=== PATIENT | male | born 1980 | race Caucasian/White ===

== ENCOUNTER 2018-02-09 10:40 | Emergency (ER) | payer BC, OTHER ==
[~2018-02-09] VITALS: Ht 167.6 cm; Wt 76.2 kg
[~2018-02-09 10:40] MED LIST: AMLO5TAB4 PO
[2018-02-09] MEDS ORDERED: HYDR-753 PO (11:21)
[2018-02-09] MEDS ORDERED: ONDA8TAB9 PO (11:21)
--- NOTE | 2018-02-09 11:21 | ED Upper Extremity ---
General Stated Complaint: POSS SPIDER BITE Source: patient Exam Limitations: no limitations History of Present Illness Date Seen by Provider: Feb 09, 2018 Time Seen by Provider: 11:17 Initial Comments to ER with a possible spider bite to the medial aspect of the left elbow for the past 3-4 days. He's been seen at [facility] couple of times, initially started on Keflex, then he was given doxycycline/mupirocin/dapsone a few days later with an injection of steroids. Denies improvement. Reports nausea today Onset: just prior to arrival Severity: moderate Pain/Injury Location: left arm Modifying Factors: Worse With Movement Allergies and Home Medications Allergies Coded Allergies: No Known Drug Allergies (Unverified , 09/11/15) Home Medications Amlodipine Besylate 5 Mg Tablet, 5 MG PO DAILY Prescribed by: GUILLERMO GUZMAN on 09/11/152034 Patient Home Medication List Home Medication List Reviewed: Yes Constitutional: see HPI; No chills, No fever EENTM: see HPI Respiratory: no symptoms reported Cardiovascular: no symptoms reported Genitourinary: no symptoms reported Musculoskeletal: no symptoms reported Skin: no symptoms reported Psychiatric/Neurological: No Symptoms Reported Past Uahhffp-Brnthm-Mybhcc Hx Patient Social History Recent Foreign Travel: No Contact w/Someone Who Travel: No Immunizations Up To Date Tetanus Booster (TDap): Less than 5yrs Past Medical History Orthopedic Hypertension Reproductive Disorders: No ADD/ADHD, Anxiety Adverse Reaction/Blood Tranf: No Physical Exam Vital Signs Capillary Refill : General Appearance: WD/WN, no apparent distress HEENT: PERRL/EOMI, normal ENT inspection Neck: non-tender, full range of motion Respiratory: no respiratory distress, no accessory muscle use Gastrointestinal: normal bowel sounds, non tender Shoulder: normal inspection, non-tender Elbow/Forearm: Left, pain (there is a 1 cm erythematouslesion with a central 1- 2 mm necrotic punctum. Surrounding this is a bit of blanching and then around this is significant erythema without induration extending distally down the metformin proximally up to the elbow.) Neurologic/Psychiatric: alert, normal mood/affect, oriented x 3 Skin: normal color, warm/dry Procedures/Interventions Suture Size: 4-0 Departure Communication (Admissions) I did suggest a CBC to evaluate platelet function. He rather have this done at the [facility] where it's cheaper. Impression Primary Impression: Alberto flores spider bite Disposition: 01 HOME, SELF-CARE Condition: Stable Departure-Patient Inst. Decision time for Depature: 11:19 Referrals: LUIS A BAIG MD (PCP) Primary Care Physician NO,LOCAL PHYSICIAN (Family) Primary Care Physician Patient Instructions: Spider Bites Add. Discharge Instructions: 1. Cool compresses to this area. Continue the doxycycline/dapsone. Take the nausea medication and the pain medication as directed. This will stick around for about 2 weeks. Scripts Ondansetron (Zofran Odt) 8 Mg Tab.rapdis 8 MG PO Q6H PRN for NAUSEA/VOMITING-1ST LINE, #10 TAB Prov: SHIRA GUERRERO APRN 02/09/18 Hydrocodone/Acetaminophen ([place] 10-325 Tablet) 1 Each Tablet 1 EACH PO Q6H PRN for PAIN-MODERATE TO SEVERE, #14 TAB Prov: SHIRA GUERRERO APRN 02/09/18 SHIRA GUERRERO APRN Feb 09, 2018 11:21
[2018-02-09 11:25] VITALS: BP 177/124
== END 2018-02-09 11:25 | disposition home or self-care (01) ==
LOC: EDUNIT# 10:40 → ER 10:42
DX: S50.362A Insect bite (nonvenomous) of left elbow, initial encounter (principal); I10 Essential (primary) hypertension; F90.9 Attention-deficit hyperactivity disorder, unspecified type; F41.9 Anxiety disorder, unspecified; W57.XXXA Bitten or stung by nonvenomous insect and other nonvenomous arthropods, initial encounter
CPT/HCPCS: 99283

== ENCOUNTER 2018-12-07 09:12 | Inpatient (IN) | payer BC ==
[~2018-12-07] VITALS: Ht 170.2 cm; Wt 76.2 kg
[2018-12-07] VITALS (8 sets, daily range): BP systolic 115–156; BP diastolic 68–90
[~2018-12-07 09:12] MED LIST changes: +HYDR-4196 PO; +ONDA8TAB9 PO
[2018-12-07] MEDS ORDERED: LACTATED RINGERS 1,000 ML IV ONE (09:43)
[2018-12-07 10:02] LABS: BASOPHILS # (AUTO) 0.1 10^3/uL (0.0-0.1); BASOPHILS % (AUTO) 0 % (0-10); EOSINOPHILS # (AUTO) 0.4 10^3/uL (0.0-0.3); EOSINOPHILS % (AUTO) 1 % (0-10); HEMATOCRIT 49 % (40-54); HEMOGLOBIN 17.2 G/DL (13.3-17.7); LYMPHOCYTES # (AUTO) 0.9 X 10^3 (1.0-4.0); LYMPHOCYTES % (AUTO) 3 % (12-44); MEAN CORPUSCULAR HEMOGLOBIN 31 PG (25-34); MEAN CORPUSCULAR HGB CONC 35 G/DL (32-36); MEAN CORPUSCULAR VOLUME 90 FL (80-99); MEAN PLATELET VOLUME 8.9 FL (7.4-10.4); MONOCYTES # (AUTO) 1.8 X 10^3 (0.0-1.0); MONOCYTES % (AUTO) 6 % (0-12); NEUTROPHILS # (AUTO) 28.8 X 10^3 (1.8-7.8); NEUTROPHILS % (AUTO) 90 % (42-75); PLATELET COUNT 433 10^3/uL (130-400); RED CELL DISTRIBUTION WIDTH 13.2 % (10.0-14.5)
[2018-12-07 10:04] LABS: WHITE BLOOD COUNT 31.9 10^3/uL (4.3-11.0)
[2018-12-07] MEDS ORDERED: ACETAMINOPHEN 500 MG TAB (TYLENOL) PO ONE (10:15)
[2018-12-07 10:18] LABS: INR 1.1 (0.8-1.4); PROTHROMBIN TIME PATIENT 14.3 SEC (12.2-14.7)
[2018-12-07 10:23] LABS: ALANINE AMINOTRANSFERASE 33 U/L (0-55); ALBUMIN 4.1 GM/DL (3.2-4.5); ALKALINE PHOSPHATASE 90 U/L (40-136); BILIRUBIN,TOTAL 2.3 MG/DL (0.1-1.0); BUN/CREATININE RATIO 16; CALCIUM 9.6 MG/DL (8.5-10.1); CARBON DIOXIDE 16 MMOL/L (21-32); CHLORIDE 100 MMOL/L (98-107); CREATININE SERUM 0.77 MG/DL (0.60-1.30); GFR ESTIMATED > 60; GLUCOSE 106 MG/DL (70-105); MAGNESIUM 2.2 MG/DL (1.8-2.4); POTASSIUM 4.5 MMOL/L (3.6-5.0); SODIUM 128 MMOL/L (135-145); TOTAL PROTEIN 7.5 GM/DL (6.4-8.2)
[2018-12-07 10:26] LABS: BAND NEUTROPHILS 2 %; BASOPHILS % (MANUAL) 0 %; EOSINOPHILS % (MANUAL) 2 %; HYPERSEGMENTED NEUT SLIGHT; LYMPHOCYTES % (MANUAL) 5 %; MONOCYTES % (MANUAL) 4 %; NEUTROPHILS % (MANUAL) 87 %
[2018-12-07 10:27] LABS: POIKILOCYTOSIS SLIGHT; SMUDGE CELLS SLIGHT; STOMATOCYTES SLIGHT; TOXIC GRANULATION/VACUOLAZATIO 1+
[2018-12-07] MEDS ORDERED: AZITHROMYCIN INJECTION 500 MG in NS (IVPB) 250 ML IV ONE (11:00)
[2018-12-07] MEDS ORDERED: methylPREDNISolone 125 MG (Solu-MEDROL) VIAL IVP ONE (11:00)
[2018-12-07] MEDS ORDERED: KETOROLAC 30 MG/ML VIAL IVP ONE (11:00)
[2018-12-07] MEDS ORDERED: cefTRIAXone FOR IV USE 2,000 MG in WATER (STERILE) FOR INJECTION 20 ML IV ONE (11:00)
--- NOTE | 2018-12-07 11:49 | Diagnostic Imaging Report ---
INDICATION: Shortness of air, cough. COMPARISON: None available. TECHNIQUE: Frontal and lateral radiographs of the chest dated 12/07/2018. FINDINGS: The cardiac silhouette is within normal limits in size. No significant pulmonary vascular congestion. Extensive interstitial and airspace opacities are identified throughout the lungs bilaterally, right greater than left. No pleural effusion. No pneumothorax. No acute osseous abnormality. IMPRESSION: Extensive bilateral mixed interstitial and airspace opacities. Findings may relate to a diffuse infectious infiltrate such as pneumonia. Brayden B-lines are present suggesting possible interstitial edema, though there is no significant pulmonary vascular congestion or pleural effusion. Dictated by: Dictated on workstation # [id number]
--- NOTE | 2018-12-07 11:55 | NUR ---
ZACHARY OHARA admitted to room 410-1, with an admitting diagnosis of PNEUMONIA AND SEPSIS, on 12/07/18 from ER via , accompanied by .ZACHARY OHARA introduced to surroundings, call light, bed controls, phone, TV, temperature control, lights, meal times, smoking policy, visitor policy, side rail policy, bathrooms and showers. Patient Rights given to patient in the handbook. ZACHARY OHARA verbalizes understanding that [facility] is not responsible for the loss or damage to any personal effects or valuables that are kept in the patients posession during their hospitalization. ZACHARY OHARA verbalizes understanding of Interdisciplinary Patient Education. Patient and/or family were informed about the Rapid Response Team and its purpose.
[2018-12-07] MEDS ORDERED: LACTATED RINGERS 1,000 ML IV SCH ×2 (12:00→16:30)
[2018-12-07] MEDS ORDERED: AZITHROMYCIN 500 MG/NS 250 ML IVPB IV NR ×2 (12:29)
[2018-12-07] MEDS: NICOTINE 21 MG (NICODERM) PATCH TD SCH (12:38)
[2018-12-07 13:04] LABS: BILIRUBIN,URINE NEGATIVE (NEGATIVE); CLARITY,URINE CLEAR; COLOR,URINE YELLOW; GLUCOSE, URINE (UA) NEGATIVE (NEGATIVE); KETONES,URINE 2+ (NEGATIVE); LEUKOCYTE ESTERASE ,URINE NEGATIVE (NEGATIVE); NITRITE,URINE NEGATIVE (NEGATIVE); PH,URINE 6.5 (5-9); PROTEIN,URINE NEGATIVE (NEGATIVE); UROBILINOGEN,URINE NORMAL (NORMAL)
[2018-12-07] MEDS ORDERED: 1/2 NS IV SOLUTION 1,000 ML IV PRN (13:08)
[2018-12-07] MEDS ORDERED: THIAMINE INJECTION 100 MG, FOLIC ACID INJECTION 1 MG, MAGNESIUM SULFATE 2 GM, VITAMIN M... IV SCH ×5 (13:08)
[2018-12-07] MEDS ORDERED: ANTACID SUSP 30 ML UDC (MYLANTA) PO PRN (13:15)
[2018-12-07] MEDS ORDERED: D5 1/2 NS 1000 ML IV SOLUTION 1,000 ML IV PRN (13:15)
[2018-12-07] MEDS ORDERED: SENNA W/DOCUSATE (SENOKOT S) TABLET PO PRN (13:15)
[2018-12-07] MEDS ORDERED: ONDANSETRON 4 MG (ZOFRAN) ORAL DISSOLVE TAB SL PRN (13:15)
[2018-12-07] MEDS ORDERED: LORazepam INJ 2 MG/ML (ATIVAN) VIAL IM/IV PRN (13:15)
[2018-12-07] MEDS ORDERED: ONDANSETRON 4 MG/2 ML (SDV) Z0FRAN IV PRN (13:15)
[2018-12-07 13:27] LABS: AMPHETAMINE SCREEN, URINE POSITIVE (NEGATIVE); BENZODIAZEPINES SCREEN URINE POSITIVE (NEGATIVE); CANNABINOID SCREEN, URINE POSITIVE (NEGATIVE); COCAINE SCREEN URINE NEGATIVE (NEGATIVE); METHAMPHETAMINE SCREEN URINE S NEGATIVE (NEGATIVE)
[2018-12-07 13:28] LABS: BARBITURATE SCREEN URINE NEGATIVE (NEGATIVE); METHADONE STAT NEGATIVE (NEGATIVE); OPIATE SCREEN URINE NEGATIVE (NEGATIVE); OXYCODONE STAT POSITIVE (NEGATIVE); PROPOXYPHENE STAT NEGATIVE (NEGATIVE); TRICYCLIC ANTIDEPRESSANTS SCRE NEGATIVE (NEGATIVE)
[2018-12-07] MEDS ORDERED: DEXT20TA8 PO (13:31)
[2018-12-07] MEDS ORDERED: ALPR0.5T7 PO (13:31)
[2018-12-07 13:32] LABS: BACTERIA,URINE NEGATIVE /HPF; RBC,URINE RARE /HPF; RENAL EPITHELIAL CELLS,URINE RARE /HPF; SQUAMOUS EPITHELIAL CELL,UR RARE /HPF; WBC,URINE 0-2 /HPF
[2018-12-07] MEDS ORDERED: MULT-633 PO (13:35)
[2018-12-07] MEDS ORDERED: LISI-552 PO (13:35)
[2018-12-07] MEDS ORDERED: VALA1000 PO (13:42)
--- NOTE | 2018-12-07 13:43 | NUR ---
SPOKE WITH THE PATIENT ABOUT HIS MEDICATIONS. HE LISTED WHAT HE IS TAKING. I CALLED [facility] TO VERIFY HIS MED LIST. HE RECEIVES HIS BLOOD PRESSURE PILL FROM THEM THROUGH THE DR. ON SITE [facility], THE OTHER MEDICATIONS ARE FILLED AT [facility] AND REFLECTED ON THE EXT MED HX. THEY VERIFIED HE IS TAKING LISINOPRIL 20MG DAILY. HE STATES HE TAKES A MTV DAILY OTC.
[2018-12-07] MEDS ORDERED: RT-ALBUTEROL SULF 2.5 MG/3 ML PRE-MIX VIAL ONE (14:00)
--- NOTE | 2018-12-07 14:18 | ED Cough/URI ---
General Chief Complaint: Respiratory Problems Stated Complaint: PNEUMONIA;SEPSIS Nursing Triage Note: PT AMBULATED TO ROOM 6 PT CO OF SOA AND FEVER SINCE YESTERDAY, PT WAS SENT FROM [facility]. NEG FLU FROM URGENT CARE Sepsis Screen: No Definite Risk Source: patient History of Present Illness Date Seen by Provider: Dec 07, 2018 Time Seen by Provider: 09:42 Initial Comments PT ARRIVES VIA POV WAS SENT HERE FROM [facility] C/O PRODUCTIVE COUGH WITH CLEAR SPUTUM SINCE THURSDAY BEGAN RUNNING FEVER TODAY--WAS 101 BEGAN HAVING SHORTNESS OF BREATH LAST PM CHEST HURTS TO COUGH C/O HEADACHE WITH COUGHING HAS NOT TAKEN ANYTHING FOR SYMPTOMS AT ANY TIME NO HISTORY OF RESPIRATORY PROBLEMS PT DOES SMOKE 1 PPD OF CIGARETTES AND SMOKES THC PT ADMITS TO 3-4 DRINKS OF ALCOHOL A DAY PCP: DR. SANDOVAL, [facility] Allergies and Home Medications Allergies Coded Allergies: No Known Drug Allergies (Unverified , 09/11/15) Home Medications Alprazolam 0.5 Mg Tablet, 0.5 MG PO BID, (Reported) Dextroamphetamine/Amphetamine 20 Mg Tablet, 20 MG PO BID, (Reported) Lisinopril 20 Mg Tablet, 20 MG PO DAILY, (Reported) Multivitamin 1 Each Tablet, 1 TAB PO DAILY, (Reported) Valacyclovir HCl 1,000 Mg Tablet, 1,000 MG PO DAILY, (Reported) Patient Home Medication List Home Medication List Reviewed: Yes Review of Systems Review of Systems Constitutional: see HPI, fever EENTM: nose congestion Respiratory: see HPI, cough, short of breath Cardiovascular: no symptoms reported Gastrointestinal: no symptoms reported Genitourinary: no symptoms reported Musculoskeletal: no symptoms reported Skin: no symptoms reported Psychiatric/Neurological: See HPI Hematologic/Lymphatic: No Symptoms Reported Immunological/Allergic: no symptoms reported Past Qyszxkc-Beiprp-Khkbtb Hx Patient Social History Alcohol Use: Regular Use (3-4 DRINKS A DAY) Number of Drinks Today: 0 Alcohol Beverage of Choice: Beer, Other Recreational Drug Use: Yes (THC) Drug of Choice: THC Smoking Status: Current Everyday Smoker (1 PPD) Type Used: Cigarettes (1 PPD) 2nd Hand Smoke Exposure: No Recent Foreign Travel: No Contact w/Someone Who Travel: No Recent Infectious Disease Expo: No Recent Hopitalizations: No Immunizations Up To Date Tetanus Booster (TDap): Less than 5yrs Past Medical History Surgeries: Yes (R WRIST BONE GRAFT, L FEMUR ORIF with hardware) Orthopedic Respiratory: No Cardiac: Yes Hypertension Neurological: No Reproductive Disorders: No Gastrointestinal: No Musculoskeletal: Yes (LEFT FEMUR FX/ORIF; RIGHT WRIST SURGERY) Endocrine: No HEENT: No Psychosocial: Yes (ALCOHOL ABUSE, THC USE) ADD/ADHD, Anxiety Integumentary: No Blood Disorders: No Adverse Reaction/Blood Tranf: No Physical Exam Vital Signs - First Documented 12/07/18 12/07/18 09:30 10:00 Temp 100.4 Pulse 122 Resp 18 B/P (MAP) 150/87 (108) Pulse Ox 95 O2 Delivery Nasal Cannula O2 Flow Rate 2.00 Capillary Refill : Less Than 3 Seconds Height: 5'7.00" Weight: 168lbs. 0.0oz. 76.418482jz; BMI Method:Stated General Appearance: WD/WN, no apparent distress, other (SMILING, LAUGHING, TALKS NON-STOP. DOES NOT APPEAR ILL. RARE COUGH NOTED. ) HEENT: PERRL/EOMI, other (NASAL CONGESTION, MILD CLEAR POST NASAL DRAINAGE) Neck: normal inspection Respiratory: no respiratory distress, no accessory muscle use, decreased breath sounds (IN BASES); No rales, No rhonchi, No wheezing Cardiovascular: no edema, no murmur, tachycardia Gastrointestinal: non tender, soft Extremities: normal inspection, no pedal edema Neurologic/Psychiatric: sound controller II-XII nml as tested, no motor/sensory deficits, alert, normal mood/affect, oriented x 3 Skin: normal color, warm/dry Focused Exam Lactate Level 12/07/18 09:40: Lactic Acid Level 0.88 Lactic Acid Level Laboratory Tests Test 12/07/18 09:40 Lactic Acid Level 0.88 MMOL/L (0.50-2.00) Procedures/Interventions Suture Size: 4-0 Progress/Results/Core Measures Suspected Sepsis Recent Fever Within 48 Hours: No Infection Criteria Present: None New/Unexplained Altered Menta: No Sepsis Screen: No Definite Risk SIRS Temperature:98.6 Pulse: 99 Respiratory Rate: 22 Laboratory Tests 12/07/18 09:40: White Blood Count 31.9*H Blood Pressure 133 /76 Mean: 97 12/07/18 09:40: Lactic Acid Level 0.88 Laboratory Tests 12/07/18 09:40: Creatinine 0.77, INR Comment 1.1, Platelet Count 433H, Total Bilirubin 2.3H Results/Orders Lab Results Laboratory Tests Test 12/07/18 09:40 Range/Units White Blood Count 31.9 *H 4.3-11.0 10^3/uL Red Blood Count 5.47 4.35-5.85 10^6/uL Hemoglobin 17.2 13.3-17.7 G/DL Hematocrit 49 40-54 % Mean Corpuscular Volume 90 80-99 FL Mean Corpuscular Hemoglobin 31 25-34 PG Mean Corpuscular Hemoglobin Concent 35 32-36 G/DL Red Cell Distribution Width 13.2 10.0-14.5 % Platelet Count 433 H 130-400 10^3/uL Mean Platelet Volume 8.9 7.4-10.4 FL Neutrophils (%) (Auto) 90 H 42-75 % Lymphocytes (%) (Auto) 3 L 12-44 % Monocytes (%) (Auto) 6 0-12 % Eosinophils (%) (Auto) 1 0-10 % Basophils (%) (Auto) 0 0-10 % Neutrophils # (Auto) 28.8 H 1.8-7.8 X 10^3 Lymphocytes # (Auto) 0.9 L 1.0-4.0 X 10^3 Monocytes # (Auto) 1.8 H 0.0-1.0 X 10^3 Eosinophils # (Auto) 0.4 H 0.0-0.3 10^3/uL Basophils # (Auto) 0.1 0.0-0.1 10^3/uL Neutrophils % (Manual) 87 % Lymphocytes % (Manual) 5 % Monocytes % (Manual) 4 % Eosinophils % (Manual) 2 % Basophils % (Manual) 0 % Band Neutrophils 2 % Hypersegmented Neutrophils SLIGHT Smudge Cells SLIGHT Toxic Granulation 1+ Poikilocytosis SLIGHT Stomatocytes SLIGHT Prothrombin Time 14.3 12.2-14.7 SEC INR Comment 1.1 0.8-1.4 Activated Partial Thromboplast Time 32 24-35 SEC Sodium Level 128 L 135-145 MMOL/L Potassium Level 4.5 3.6-5.0 MMOL/L Chloride Level 100 98-107 MMOL/L Carbon Dioxide Level 16 L 21-32 MMOL/L Anion Gap 12 5-14 MMOL/L Blood Urea Nitrogen 12 7-18 MG/DL Creatinine 0.77 0.60-1.30 MG/DL Estimat Glomerular Filtration Rate > 60 BUN/Creatinine Ratio 16 Glucose Level 106 H 70-105 MG/DL Lactic Acid Level 0.88 0.50-2.00 MMOL/L Calcium Level 9.6 8.5-10.1 MG/DL Corrected Calcium 9.5 8.5-10.1 MG/DL Magnesium Level 2.2 1.8-2.4 MG/DL Total Bilirubin 2.3 H 0.1-1.0 MG/DL Aspartate Amino Transf (AST/SGOT) 29 5-34 U/L Alanine Aminotransferase (ALT/SGPT) 33 0-55 U/L Alkaline Phosphatase 90 40-136 U/L B-Type Natriuretic Peptide 21.8 <100.0 PG/ML Total Protein 7.5 6.4-8.2 GM/DL Albumin 4.1 3.2-4.5 GM/DL Serum Alcohol < 10 <10 MG/DL My Orders Orders - MELINDA DAWN DO Ed Iv/Invasive Line Start (12/07/18 09:43) Ekg Tracing (12/07/18 09:43) Monitor-Rhythm Ecg Trace Only (12/07/18 09:43) Chest Pa/Lat (2 View) (12/07/18 09:43) Ed Iv/Invasive Line Start (12/07/18 09:43) Lactated Ringers (Lr 1000 Ml Iv Solution (12/07/18 09:43) BNP (12/07/18 09:43) Cbc With Automated Diff (12/07/18 09:43) Comprehensive Metabolic Panel (12/07/18 09:43) Lactic Acid Analyzer (12/07/18 09:43) Magnesium (12/07/18 09:43) Protime With Inr (12/07/18 09:43) Partial Thromboplastin Time (12/07/18 09:43) Blood Culture (12/07/18 09:43) Influenza A And B Antigens (12/07/18 09:43) Manual Differential (12/07/18 09:40) Acetaminophen Tablet (Tylenol Tablet) (12/07/18 10:15) O2 (12/07/18 10:13) Ceftriaxone For Iv Use (Rocephin For I (12/07/18 11:00) Sputum Culture (12/07/18 10:47) Urinalysis (12/07/18 10:47) Urine Culture (12/07/18 10:47) Vital Signs Adult Sepsis Patie Q15M (12/07/18 10:47) Remove Rings In Anticipation O (12/07/18 10:47) Azithromycin Injection (Zithromax Inject (12/07/18 11:00) Methylprednisolone Sod Succ (Solu-Medrol (12/07/18 11:00) Ketorolac Injection (Toradol Injection) (12/07/18 11:00) Medications Given in ED Current Medications Medications Dose Ordered Sig/Haroon Route Start Time Stop Time Status Last Admin Dose Admin Acetaminophen 1,000 mg ONCE ONCE PO 12/07/18 10:15 12/07/18 10:16 DC 12/07/18 10:20 1,000 MG Ceftriaxone Sodium 2000 mg/ Sterile Water 20 ml @ 240 mls/hr ONCE ONCE IV 12/07/18 11:00 12/07/18 11:04 DC 12/07/18 11:15 240 MLS/HR Ketorolac Tromethamine 30 mg ONCE ONCE IVP 12/07/18 11:00 12/07/18 11:03 DC 12/07/18 11:15 30 MG Lactated Ringer's 1,000 ml @ 0 mls/hr Q0M ONCE IV 12/07/18 09:43 12/07/18 09:45 DC 12/07/18 10:14 1,000 MLS/HR Methylprednisolone Sodium Succinate 125 mg ONCE ONCE IVP 12/07/18 11:00 12/07/18 11:03 DC 12/07/18 11:15 125 MG Vital Signs/I&O 12/07/18 12/07/18 09:30 10:00 Temp 100.4 Pulse 122 Resp 18 B/P (MAP) 150/87 (108) Pulse Ox 95 95 O2 Delivery Nasal Cannula O2 Flow Rate 2.00 Capillary Refill : Less Than 3 Seconds Blood Pressure Mean: 97 Progress Note : Progress Note UNEVENTFUL ER STAY PT DID HAVE SATS 91-93%--UP TO MID 90'S ON O2 AT 2L/NC NO DYSPNEA OR DETERIORATION IN PT'S CONDITION. ECG Initial ECG Impression Date: Dec 07, 2018 Initial ECG Impression Time: 09:35 Initial ECG Rate: 121 Initial ECG Rhythm: S.Tach Diagnostic Imaging Comments CXR--EXTENSIVE BILATERAL MIXED INTERSTITIAL AND AIRSPACE OPACITIES. MAY RELATE TO DIFFUSE INFECTIOUS INFILTRATE SUCH PNEUMONIA, POSSIBLE INTERSTITIAL EDEMA , NO PULMONARY VASCULAR CONGESTION OR PLEURAL EFFUSION,, PER RADIOLOGIST REPORT @ 1045 Reviewed: Reviewed by Me Departure Communication (Admissions) 1053--SPOKE WITH DR. MONTELONGO, HOSPITALIST, ACCEPTS PT FOR ADMIT Impression Primary Impression: Bilateral pneumonia Additional Impressions: Sepsis Illicit drug use Alcohol abuse Disposition: ADMITTED INPATIENT Condition: Stable Admissions Decision to Admit Reason: Admit from ER (General) Decision to Admit/Date: Dec 07, 2018 Time/Decision to Admit Time: 10:55 Departure-Patient Inst. Referrals: NO,LOCAL PHYSICIAN (PCP) Primary Care Physician MELINDA DAWN DO Dec 07, 2018 14:18
[2018-12-07] MEDS: LORazepam 1 MG (ATIVAN) TAB PO PRN ×3 (14:34→18:57)
--- NOTE | 2018-12-07 15:27 | Pulmonary Consultation ---
History of Present Illness History of Present Illness Date of Consultation 12/07/18 15:22 Time Seen by Provider: 15:22 Date of Admission History of Present Illness 38yo current smoker and smokes THC presented to ED secondary to worsening SOB, fever 101, and SPC with clear sputum. Cough started Home and has since progressed to SOB. Pt denies hemoptysis. No sick contacts and no known exposure to TB. Pt did travel to [place] 1 year ago. Pt drinks 3-4 alcoholic drinks per day. No prior episodes like this. CXR shows extensive bilateral pulmonary infiltrates. I also question a RLL cavitary mass. Pt denies any problems with his teeth. He denies N/V or abdominal pain. Allergies and Home Medications Allergies Coded Allergies: No Known Drug Allergies (Unverified , 09/11/15) Home Medications Alprazolam 0.5 Mg Tablet, 0.5 MG PO BID, (Reported) Dextroamphetamine/Amphetamine 20 Mg Tablet, 20 MG PO BID, (Reported) Lisinopril 20 Mg Tablet, 20 MG PO DAILY, (Reported) Multivitamin 1 Each Tablet, 1 TAB PO DAILY, (Reported) Valacyclovir HCl 1,000 Mg Tablet, 1,000 MG PO DAILY, (Reported) Past Hoiftdu-Tqkdhw-Okxfpm Hx Patient Social History Alcohol Use: Regular Use (3-4 DRINKS A DAY) Number of Drinks Today: 0 Alcohol Beverage of Choice: Beer, Other Recreational Drug Use: Yes (THC) Drug of Choice: THC Smoking Status: Current Everyday Smoker (1 PPD) Type Used: Cigarettes (1 PPD) 2nd Hand Smoke Exposure: No Recent Foreign Travel: No Contact w/Someone Who Travel: No Recent Infectious Disease Expo: No Recent Hopitalizations: No Immunizations Up To Date Tetanus Booster (TDap): Less than 5yrs Past Medical History Surgeries: Yes (R WRIST BONE GRAFT, L FEMUR ORIF with hardware) Orthopedic Respiratory: No Cardiac: Yes Hypertension Neurological: No Reproductive Disorders: No Gastrointestinal: No Musculoskeletal: Yes (LEFT FEMUR FX/ORIF; RIGHT WRIST SURGERY) Endocrine: No HEENT: No Psychosocial: Yes (ALCOHOL ABUSE, THC USE) ADD/ADHD, Anxiety Integumentary: No Blood Disorders: No Adverse Reaction/Blood Tranf: No Review of Systems Time Seen by Provider: 16:08 Constitutional: Fever, Chills, Sweats, Weakness, Malaise, Other Eyes: No: Pain, Vision change, Conjunctivae inflammation, Eyelid inflammation, Other, Redness ENT: Nose congestion; No: Ear pain, Ear discharge, Nose pain, Nose discharge, Mouth pain, Mouth swelling, Throat pain, Throat swelling, Other Respiratory: Cough, Shortness of breath, SOB with excertion, Pleuritic Pain, Sputum (clear); No: Wheezing, Hemoptysis Sepsis Event Evaluation Height, Weight, BMI Height: 5'7.00" Weight: 168lbs. 0.0oz. 76.795125qb; BMI Method:Stated Exam Exam Vital Signs Date Time Temp Pulse Resp B/P (MAP) Pulse Ox O2 Delivery O2 Flow Rate FiO2 12/07/18 14:07 99 95 2 12/07/18 14:00 99.4 105 18 127/79 (95) 95 Room Air 12/07/18 14:00 Room Air 12/07/18 12:51 98.6 12/07/18 11:55 98.3 99 22 133/79 (97) 95 Room Air 12/07/18 11:55 98.3 99 22 133/79 (97) 95 12/07/18 11:49 102 18 128/52 (77) 95 Nasal Cannula 2.00 12/07/18 10:00 95 Nasal Cannula 2.00 12/07/18 09:30 100.4 122 18 150/87 (108) 95 Height & Weight Height: 5'7.00" Weight: 168lbs. 0.0oz. 76.930648dt; BMI Method:Stated General Appearance: Mild Distress Respiratory: Accessory Muscle Use Capillary Refill: Less Than 3 Seconds Gastrointestinal: non tender, soft Results Lab Laboratory Tests 12/07/18 09:40 Assessment/Plan Assessment/Plan Extensive bilateral pneumonia with sepsis (not severe sepsis LA was normal) -Change Abx to Zosyn to cover for possible aspiration -Check CT of chest to r/o cavitary mass -Will do PPD -Pt is agreeable to bronchoscopy in AM -Check viral respiratory panel -repeat labs including LA -Will start IVF and give a liter bolus of LR WO -MRSA nasal swab SOB with increased WOB and diaphoresis -Check Troponins x 3 -Add Telemetry and end tidal C02 monitor Anion gapped Metabolic acidosis with ketones + in urine -- Pt is not diabetic -IVF Alocohol dependance - monitor for withdrawal -LINDA protocol Hyponatremia -Monitor Marijuanna, and tobacco use JAIME LLOYD DO Dec 07, 2018 15:27
[2018-12-07 16:54] LABS: BASOPHILS % (AUTO) 0 % (0-10); EOSINOPHILS # (AUTO) 0.1 10^3/uL (0.0-0.3); EOSINOPHILS % (AUTO) 1 % (0-10); HEMATOCRIT 45 % (40-54); HEMOGLOBIN 15.9 G/DL (13.3-17.7); LYMPHOCYTES # (AUTO) 0.7 X 10^3 (1.0-4.0); LYMPHOCYTES % (AUTO) 3 % (12-44); MEAN CORPUSCULAR HEMOGLOBIN 32 PG (25-34); MEAN CORPUSCULAR HGB CONC 35 G/DL (32-36); MEAN CORPUSCULAR VOLUME 91 FL (80-99); MONOCYTES # (AUTO) 0.2 X 10^3 (0.0-1.0); MONOCYTES % (AUTO) 1 % (0-12); NEUTROPHILS # (AUTO) 25.2 X 10^3 (1.8-7.8); NEUTROPHILS % (AUTO) 96 % (42-75); PLATELET COUNT 378 10^3/uL (130-400); RED CELL DISTRIBUTION WIDTH 13.1 % (10.0-14.5); WHITE BLOOD COUNT 26.2 10^3/uL (4.3-11.0)
[2018-12-07 17:15] LABS: ALANINE AMINOTRANSFERASE 28 U/L (0-55); ALBUMIN 3.8 GM/DL (3.2-4.5); ALKALINE PHOSPHATASE 76 U/L (40-136); BILIRUBIN,TOTAL 1.1 MG/DL (0.1-1.0); BUN/CREATININE RATIO 15; CALCIUM 9.6 MG/DL (8.5-10.1); CARBON DIOXIDE 22 MMOL/L (21-32); CHLORIDE 103 MMOL/L (98-107); CREATININE SERUM 0.82 MG/DL (0.60-1.30); GFR ESTIMATED > 60; GLUCOSE 145 MG/DL (70-105); MAGNESIUM 2.4 MG/DL (1.8-2.4); PHOSPHORUS 2.7 MG/DL (2.3-4.7); POTASSIUM 4.1 MMOL/L (3.6-5.0); SODIUM 136 MMOL/L (135-145); TOTAL PROTEIN 6.7 GM/DL (6.4-8.2)
[2018-12-07 17:17] LABS: ABG BASE EXCESS -0.6 MMOL/L (-2.5-2.5); ABG OXYGEN SATURATION 95 % (94-100); ABG PCO2 32 MMHG (35-45); ABG PH 7.47 (7.37-7.43); ABG PO2 63 MMHG (79-93); ABG TCO2 23.7 MMOL/L (21.0-31.0); ALLENS TEST POSITIVE; PATIENT TEMP 98.3; VENTILATOR NO
--- NOTE | 2018-12-07 18:50 | Diagnostic Imaging Report ---
PROCEDURE: CT chest with contrast only. TECHNIQUE: Multiple contiguous axial images were obtained through the chest after administration of intravenous contrast. Auto Exposure Controls were utilized during the CT exam to meet ALARA standards for radiation dose reduction. INDICATION: 38-year-old male with mass versus pneumonia. COMPARISON: 2 views chest 12/07/2018 FINDINGS: There are few shotty benign-appearing axillary nodes but no evidence of axillary adenopathy. There is also no hilar or mediastinal adenopathy. Cardiac contour is normal. There is a sliver of pericardial fluid. The thoracic area contours normal with no evidence of aneurysm or dissection. Pulmonary outflow tract and the right and left pulmonary arteries are patent. Lungs show predominantly patchy alveolar infiltrates and a nodular pattern in all 5 lobes most prominent in the lower lobes and right middle lobe. Small bilateral effusions are seen, right greater than left. Limited assessment of the abdomen shows no overall gross abnormalities. IMPRESSION: 1. Extensive patchy bilateral pneumonic alveolar infiltrates with a nodular pattern. Short-term followup to resolution with clinical correlation recommended. 2. Small bilateral pleural effusions right greater than left. Dictated by: Dictated on workstation # [id number]
[2018-12-07] MEDS: LACTATED RINGERS 1,000 ML IV SCH (18:52)
[2018-12-07] MEDS: MAGNESIUM OXIDE (MAG-OX)400 MG TAB PO SCH (21:35)
[2018-12-08 03:54] VITALS: BP 147/84
[2018-12-08] MEDS: LORazepam INJ 2 MG/ML (ATIVAN) VIAL IV PRN ×2 (04:08→23:13)
[2018-12-08] MEDS: LACTATED RINGERS 1,000 ML IV SCH ×4 (05:02→20:14)
[2018-12-08] MEDS: THIAMINE 100 MG (VITAMIN B-1) TAB PO SCH (06:09)
[2018-12-08] MEDS: MULTIVIT W/MINERALS TAB (THERAGRAN M) PO SCH (06:10)
[2018-12-08 06:27] LABS: BASOPHILS # (AUTO) 0.1 10^3/uL (0.0-0.1); BASOPHILS % (AUTO) 0 % (0-10); EOSINOPHILS # (AUTO) 0.9 10^3/uL (0.0-0.3); EOSINOPHILS % (AUTO) 4 % (0-10); HEMATOCRIT 40 % (40-54); HEMOGLOBIN 14.2 G/DL (13.3-17.7); LYMPHOCYTES # (AUTO) 1.8 X 10^3 (1.0-4.0); LYMPHOCYTES % (AUTO) 8 % (12-44); MEAN CORPUSCULAR HEMOGLOBIN 33 PG (25-34); MEAN CORPUSCULAR HGB CONC 35 G/DL (32-36); MEAN CORPUSCULAR VOLUME 92 FL (80-99); MONOCYTES # (AUTO) 1.2 X 10^3 (0.0-1.0); MONOCYTES % (AUTO) 5 % (0-12); NEUTROPHILS # (AUTO) 19.8 X 10^3 (1.8-7.8); NEUTROPHILS % (AUTO) 84 % (42-75); PLATELET COUNT 350 10^3/uL (130-400); RED CELL DISTRIBUTION WIDTH 13.1 % (10.0-14.5); WHITE BLOOD COUNT 23.8 10^3/uL (4.3-11.0)
[2018-12-08 06:49] LABS: ALANINE AMINOTRANSFERASE 22 U/L (0-55); ALBUMIN 3.5 GM/DL (3.2-4.5); ALKALINE PHOSPHATASE 66 U/L (40-136); BILIRUBIN,TOTAL 0.7 MG/DL (0.1-1.0); BUN/CREATININE RATIO 19; CALCIUM 9.1 MG/DL (8.5-10.1); CARBON DIOXIDE 20 MMOL/L (21-32); CHLORIDE 109 MMOL/L (98-107); CREATININE SERUM 0.67 MG/DL (0.60-1.30); GFR ESTIMATED > 60; GLUCOSE 104 MG/DL (70-105); MAGNESIUM 2.1 MG/DL (1.8-2.4); POTASSIUM 4.1 MMOL/L (3.6-5.0); SODIUM 138 MMOL/L (135-145); TOTAL PROTEIN 6.2 GM/DL (6.4-8.2)
--- NOTE | 2018-12-08 07:34 | NUR ---
SWAGING MACHINE OPERATOR HERE TO TRANSPORT PATIENT TO BRONCHOSCOPY THIS AM. PATIENT LEFT ROOM VIA WHEELCHAIR WITH IV INFUSING AND N95 MASK ON.
[2018-12-08 08:00] VITALS: BP 124/68
[2018-12-08] MEDS: MIDAZOLAM 2 MG/2 ML (VERSED) VIAL IVP PRN ×4 (08:04→08:13)
[2018-12-08] MEDS: fentaNYL INJECTION 100 MCG/2 ML AMP IVP PRN ×7 (08:05→20:24)
--- NOTE | 2018-12-08 08:36 | Pulmonary Progress Note ---
Subjective Time Seen by a Provider: 08:32 Subjective/Events-last exam PT is agreeable to bronchoscopy this AM. All of his questions answered. Sepsis Event Evaluation Height, Weight, BMI Height: 5'7.00" Weight: 168lbs. 0.0oz. 76.764622qb; 26.3 BMI Method:Stated Focused Exam Lactate Level 12/07/18 09:40: Lactic Acid Level 0.88 12/07/18 16:39: Lactic Acid Level 1.38 Exam Exam Vital Signs Date Time Temp Pulse Resp B/P (MAP) Pulse Ox O2 Delivery O2 Flow Rate FiO2 12/08/18 07:04 103 12/08/18 03:54 99.6 104 28 147/84 (105) 96 Room Air 12/08/18 03:15 96 2.00 12/08/18 01:00 93 12/07/18 23:48 98.0 95 27 128/85 (99) 94 Room Air 12/07/18 22:53 94 2.00 12/07/18 20:51 97.2 93 28 115/68 (84) 94 Room Air 12/07/18 20:00 Room Air 12/07/18 19:05 94 Room Air 12/07/18 19:00 109 12/07/18 18:51 98.1 106 28 156/74 (101) 96 Room Air 12/07/18 17:49 110 12/07/18 17:26 98.0 107 22 146/90 94 Room Air 2.00 12/07/18 15:53 98.0 107 22 146/90 (108) 94 Room Air 12/07/18 15:53 98.0 107 22 146/90 (108) 94 Room Air 12/07/18 14:07 99 95 2 12/07/18 14:00 99.4 105 18 127/79 (95) 95 Room Air 12/07/18 14:00 Room Air 12/07/18 12:51 98.6 12/07/18 11:55 98.3 99 22 133/79 (97) 95 Room Air 12/07/18 11:55 98.3 99 22 133/79 (97) 95 12/07/18 11:49 102 18 128/52 (77) 95 Nasal Cannula 2.00 12/07/18 10:00 95 Nasal Cannula 2.00 12/07/18 09:30 100.4 122 18 150/87 (346) 95 I & O 12/08/18 07:00 Intake Total 5385.2 ml Output Total 600 ml Balance 4785.2 ml Height & Weight Height: 5'7.00" Weight: 168lbs. 0.0oz. 76.237779ku; 26.3 BMI Method:Stated General Appearance: Anxious, Mild Distress HEENT: PERRL/EOMI, TMs Normal Neck: Full Range of Motion, Normal Inspection, Non Tender, Supple Respiratory: Chest Non Tender, Accessory Muscle Use, Decreased Breath Sounds Capillary Refill: Less Than 3 Seconds Gastrointestinal: non tender, soft Extremity: Normal Capillary Refill, Normal Inspection, No Pedal Edema Neurologic/Psychiatric: Alert, Oriented x3 Skin: Normal Color, Warm/Dry Lymphatic: No Adenopathy Results Lab Laboratory Tests 12/07/18 09:40 12/07/18 16:39 12/08/18 06:20 Assessment/Plan Assessment/Plan Extensive bilateral pneumonia with sepsis (not severe sepsis LA was normal) -Change Abx to Zosyn to cover for possible aspiration -Check CT of chest reviewed - shows extensive bilateral infiltrates - bronchoscopy this AM -viral respiratory panel - pending -strep/legionella ag pending -Mycoplasma Ab pending -MRSA nasal swab -Solumedrol 40 IV Q 6 - SOB with increased WOB and diaphoresis Anion gapped Metabolic acidosis with ketones + in urine -- Pt is not diabetic -IVF Alocohol dependance - monitor for withdrawal -LINDA protocol Marijuanna, and tobacco use JAIME LLOYD DO December 08, 2018 08:36
--- NOTE | 2018-12-08 08:44 | Pulmonary Procedures ---
Pulmonary Procedures Date of Procedure Date of Service: December 08, 2018 Bronch Bronchoscopy with bilateral washes. Preop DX Bilateral extensive pneumonia Postop DX: same Complications: none After informed consent obtained and formal time out pt was sedated using Fentanyl and Versed. Bronchoscope was advanced through the mouth and vocal cords. 1% lidocaine was used to anesthetize vocal cords, epiglottis, aliza, and left/right main stem bronchus. An anatomical tour was undertaken down to the segmental bronchi bilaterally. No endobronchial lesions noted. bilateral washes were obtained. Pt tolerated procedure well. No complications noted. Stat CXR is pending. JAIME LLOYD DO December 08, 2018 08:44
[2018-12-08] MEDS ORDERED: ACETAMINOPHEN 500 MG TAB (TYLENOL) PO PRN (09:15)
[2018-12-08] MEDS: HYDROcodone/APAP 5 MG/325 MG (LORTAB) TAB PO PRN ×3 (09:31→18:54)
[2018-12-08] MEDS: AZITHROMYCIN 250 MG TAB (ZITHROMAX) PO SCH (09:31)
[2018-12-08] MEDS: FOLIC ACID 1 MG TAB PO SCH (09:32)
[2018-12-08] MEDS: NICOTINE PATCH REMOVAL TP SCH (09:32)
[2018-12-08] MEDS: NICOTINE 21 MG (NICODERM) PATCH TD SCH (09:32)
[2018-12-08] MEDS: MAGNESIUM OXIDE (MAG-OX)400 MG TAB PO SCH ×2 (09:32→20:14)
--- NOTE | 2018-12-08 10:04 | Diagnostic Imaging Report ---
INDICATION: Followup bronchoscopy. Comparison made with prior examination 12/07/2018. FINDINGS: Heart size is normal. There are patchy bilateral alveolar infiltrates right greater than left. There is no pleural effusion or pneumothorax. Mediastinum is unremarkable. IMPRESSION: Persistent patchy bilateral alveolar infiltrates appear slightly improved when compared to prior examination. Dictated by: Dictated on workstation # [id number]
--- NOTE | 2018-12-08 10:14 | NUR ---
Initial visit with pt's family. Pt is an employee and [employer]. Family has [employer] affiliations in [place]. Engaged in rapport building.
--- NOTE | 2018-12-08 10:28 | History & Physical-Hospitalist ---
History of Present Illness HPI/Chief Complaint CC: Bilateral pneumonia with leukocytosis and thrombocytosis HPI: This is a 38-year-old white male who is usually very healthy but does smoke 1 pack per day of cigarettes and also uses marijuana along with regular alcohol use 4 drinks a day who works at [employer] in the [employer] department for the past 10 years who presented to the ER from urgent care due to shortness of breath and cough and was found to have bilateral extensive pneumonia with leukocytosis and sepsis. Patient was placed on protocol given IV fluids IV antibiotics and pancultured. Apparently he had seen the on site clinic and was referred to hematology for leukocytosis and thrombocytosis and I am unclear when exactly that happened so I will try to get records and review that. He was not given any type of treatment for any other acute illness prior to seeking care at urgent care and thus subsequent via [facility]. Smoking cessation counseled. Mother is at the bedside. Patient did have a bronchoscopy completed and those results are pending. I did update the patient on the plan. He does report a headache and overall muscle pain so he was given pain medication. He did have an appointment with Dr. Mathews next week as referred by [facility] at [employer] so I did speak with Dr. Mathews who will see him in consultation while he was hospitalized and he has ordered a peripheral smear for review. Source: patient Exam Limitations: no limitations Date Seen 12/08/18 Time Seen by a Provider: 09:30 Attending Physician Negro Lim MD PCP No,Local Physician Referring Physician Date of Admission Dec 07, 2018 at 11:07 Home Medications & Allergies Home Medications Reviewed patient Home Medication Reconciliation performed by pharmacy medication reconciliations civil laboratory technician and/or nursing. Patients Allergies have been reviewed. 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) Alcohol Use: Regular Use (3-4 DRINKS A DAY) Number of Drinks Today: 0 Alcohol Beverage of Choice: Beer, Other Recreational Drug Use: Yes (THC) Drug of Choice: THC Smoking Status: Current Everyday Smoker (1 PPD) Type Used: Cigarettes (1 PPD) 2nd Hand Smoke Exposure: No Recent Foreign Travel: Yes ([place]) Contact w/other who traveled: No Recent Hopitalizations: No Recent Infectious Disease Expo: No Immunizations Up To Date Tetanus Booster (TDap): Less than 5yrs Past Medical History Surgeries: Orthopedic Cardiac: Hypertension Reproductive: No Psychosocial: ADD/ADHD, Anxiety History of Blood Disorders: No Adverse Reaction to Blood Barros: No Review of Systems Constitutional: see HPI, dizziness, fever, malaise, weakness EENTM: no symptoms reported Respiratory: cough, dyspnea on exertion, short of breath, wheezing Cardiovascular: no symptoms reported Gastrointestinal: no symptoms reported Genitourinary: no symptoms reported Musculoskeletal: no symptoms reported Skin: no symptoms reported Psychiatric/Neurological: No Symptoms Reported All Other Systems Reviewed Negative Unless Noted: Yes Physical Exam Physical Exam Vital Signs Vital Signs - First Documented 12/07/18 12/07/18 12/07/18 09:30 10:00 14:07 Temp 100.4 Pulse 122 Resp 18 B/P (MAP) 150/87 (108) Pulse Ox 95 O2 Delivery Nasal Cannula O2 Flow Rate 2.00 FiO2 2 Capillary Refill : Less Than 3 Seconds Height, Weight, BMI Height: 5'7.00" Weight: 168lbs. 0.0oz. 76.039084vx; 26.3 BMI Method:Stated General Appearance: No Apparent Distress, WD/WN, Anxious Eyes: Right Eye Normal Inspection, Right Eye PERRL HEENT: PERRL/EOMI, Normal ENT Inspection, Pharynx Normal, Moist Mucous Membranes Neck: Full Range of Motion, Normal Inspection, Non Tender Respiratory: Chest Non Tender, No Accessory Muscle Use, No Respiratory Distress , Crackles, Decreased Breath Sounds, Wheezing Cardiovascular: Regular Rate, Rhythm, No Edema, No Gallop, No JVD, No Murmur, Normal Peripheral Pulses Gastrointestinal: Normal Bowel Sounds, No Organomegaly, No Pulsatile Mass, Non Tender, Soft Back: Normal Inspection, No CVA Tenderness, No Vertebral Tenderness Extremity: Normal Capillary Refill, Normal Inspection, Normal Range of Motion, Non Tender, No Calf Tenderness, No Pedal Edema Neurologic/Psychiatric: Alert, Oriented x3, No Motor/Sensory Deficits, Normal Mood/Affect Skin: Normal Color, Warm/Dry Lymphatic: No Adenopathy Results Results/Procedures Labs Laboratory Tests 12/07/18 09:40 12/07/18 16:39 12/08/18 06:20 Patient resulted labs reviewed. Assessment/Plan Admission Diagnosis Assessment: Bilateral extensive pneumonia Sepsis Hypoxemia on ABG Smoker Excessive alcohol use Marijuana use ADHD Anxiety Leukocytosis Thrombocytosis Mild metabolic acidosis Plan: IV antibiotics IV fluids Dr. Mathews consultation Dr. Rose consultation is appreciated Await bronchoscopy results Admission Status: Inpatient Order (span 2 midnights) Reason for Inpatient Admission: Severe bilateral pneumonia with hypoxia and sepsis will take 3 days Diagnosis/Problems Diagnosis/Problems (1) Sepsis Status: Acute Qualifiers: Sepsis type: sepsis due to unspecified organism Qualified Codes: A41.9 - Sepsis, unspecified organism (2) Bilateral pneumonia Status: Acute Qualifiers: Pneumonia type: due to unspecified organism Lung location: lower lobe of lung Qualified Codes: J18.1 - Lobar pneumonia, unspecified organism (3) Marijuana abuse Status: Chronic (4) ADD (attention deficit disorder) Status: Chronic Qualifiers: Hyperactivity presence: present Attention deficit-hyperactivity disorder type: unspecified Qualified Codes: F90.9 - Attention-deficit hyperactivity disorder, unspecified type (5) Leukocytosis Status: Acute Qualifiers: Leukocytosis type: leukemoid reaction Qualified Codes: D72.823 - Leukemoid reaction (6) Thrombocytosis Status: Acute (7) Anxiety Status: Chronic (8) Hypoxemia Status: Acute (9) Alcohol abuse Status: Chronic (10) Illicit drug use Status: Chronic (11) Hypertension Status: Chronic Qualifiers: Hypertension type: essential hypertension Qualified Codes: I10 - Essential (primary) hypertension Clinical Quality Measures DVT/VTE Risk/Contraindication: Risk Factor Score Per Nursin RFS Level Per Nursing on Admit: 4+=Very High KERLINE UGALDE DO December 08, 2018 10:28
[2018-12-08 12:00] VITALS: BP 132/70
[2018-12-08] MEDS: methylPREDNISolone 40 MG/ML (Solu-MEDROL) VIAL IV SCH ×3 (12:08→23:13)
[2018-12-08] MEDS: cefTRIAXone 1,000 MG/SWFI 10 ML IV PUSH IV SCH ×2 (12:08)
[2018-12-08] MEDS ORDERED: LIDOCAINE PF 2% 5 ML (XYLOCAINE) VIAL INJ ONE (12:27)
[2018-12-08] MEDS ORDERED: LIDOCAINE PF 1% 2 ML VIAL IJ ONE (12:27)
[2018-12-08] MEDS ORDERED: LIDOCAINE JELLY 2% 6 ML SYRINGE MM ONE (12:27)
[2018-12-08] MEDS: LORazepam 1 MG (ATIVAN) TAB PO PRN (13:25)
[2018-12-08 15:19] VITALS: BP 136/89
[2018-12-08 19:26] VITALS: BP 129/77
--- NOTE | 2018-12-08 21:55 | CONSULTATION REPORT ---
DATE OF SERVICE: 12/08/2018 REFERRING PHYSICIAN: Cristal Willis DO The patient is admitted to room 401. IMPRESSION: 1. A 38-year-old male admitted with bilateral pneumonia. 2. Leukocytosis and thrombocytosis since the last 2 to 3 weeks. 3. History of tobacco, alcohol and THC use. RECOMMENDATIONS: 1. Continue broad spectrum antibiotic therapy as you are doing. If any organism is identified on the cultures from bronchoscopy and washings, tailor the antibiotic therapy against . 2. Continue to monitor the blood counts serially. 3. I would like to see him approximately a month after discharge with repeat CBC. If the leukocytosis and thrombocytosis has normalized by then, then it is most likely related to the current infection. If he continues to have leukocytosis and thrombocytosis, he will need a workup to rule out myeloproliferative disorders. BRIEF HISTORY: The patient is a 38-year-old male who was noted to have leukocytosis and thrombocytosis on an outpatient basis over the last 2 or 3 weeks. Hematology consultation was requested and scheduled for next week. In the interim, he came to the emergency room with worsening shortness of breath and chest pain. He was found to have bilateral pneumonia and admitted to the hospital. He was started on broad spectrum antibiotic therapy with some improvement in the respiratory symptoms. He also completed a bronchoscopy with washings earlier today and the cultures are pending. A hematology consultation was requested for evaluation. PAST MEDICAL HISTORY: Only significant for hypertension for which he has been on treatment. PAST SURGICAL HISTORY: Previous surgeries include right wrist fracture requiring surgery. He had a left femur fracture requiring ORIF with hardware placement. No other surgeries. SOCIAL HISTORY: The patient is single and lives in [facility]. He works in sales at [employer]. He has extensive history of tobacco use, but has decided to quit since this admission and is using a nicotine patch. Also has extensive history of alcohol use and was using up to four drinks a day on a regular basis. He uses the THC fairly regularly. In his late teenage years and early 20s, he has used other recreational drugs like cocaine. He denied using any IV drugs or sharing needles. No history of high risk sexual behavior. FAMILY HISTORY: Unremarkable except his mother of breast cancer while in her 40s. PHYSICAL EXAMINATION: GENERAL: Today showed a young male, well developed and nourished, awake and oriented and in no acute distress. VITAL SIGNS: His temperature was 98.4, pulse rate of 107, respirations 22, blood pressure 136/89 with oxygen saturation of 94% on room air. T-max at the time of admission was 100.4 degrees Fahrenheit. HEENT: Normocephalic with male pattern baldness, extraocular muscles intact, conjunctivae pink, oral mucosa moist without lesions. NECK: Supple, with no JVD. No cervical, supraclavicular or axillary lymphadenopathy palpable. CHEST: Symmetrical. LUNGS: Slightly diminished breath sounds bilaterally without any wheezes or rales. CARDIOVASCULAR: Regular in rate and rhythm with borderline tachycardia. No murmurs or gallops heard. ABDOMEN: Soft, nontender with no hepatosplenomegaly or other masses palpable. EXTREMITIES: Showed no edema. NEUROLOGIC: Grossly intact without focal motor deficits. LABORATORY DATA: CBC done at the time of admission showed white blood cell count of 31.9, hemoglobin 17.2 and platelet count of 433,000 with neutrophil count 28.8, lymphocyte count 0.9, monocyte count 1.8. CBC done earlier today showed white count of 23.8, hemoglobin 14.2, platelet count of 350,000 with neutrophil count of 19.8, lymphocyte count 1.8 and monocyte count 1.2. I reviewed the peripheral smear from the time of admission, which did show leukocytosis with mostly mature neutrophils with hypergranulation. Red blood cells appeared unremarkable. Platelets were slightly elevated, but morphologically appeared normal. Few atypical lymphocytes were seen, but no immature cells identified. Chemistry panel showed relatively normal electrolytes. BUN was 13 and creatinine 0.67 with GFR more than 60 mL per minute. Liver function studies were within normal limits. Urine tox screen was positive for oxycodone amphetamines, benzodiazepines and cannabinoids. Serum alcohol level was less than 10. Chest x-ray done at the time of admission showed extensive bilateral mixed interstitial and airspace opacities. CT scan of the chest done at the emergency room showed extensive patchy bilateral alveolar infiltrates with a nodular pattern. Short term follow up to resolution was recommended. Small bilateral pleural effusions with the right greater than left. Thank you for allowing me to participate in this patient's care. I will follow the patient with you and make appropriate recommendations. Job ID: [id number] DocumentID: [id number] Dictated Date: 12/08/2018 16:18:09 Corporate Banking Officer Date: 12/08/2018 21:55:07 Dictated By: KAYLA BATISTA MD
[2018-12-08 23:31] VITALS: BP 134/78
[2018-12-09] MEDS: LACTATED RINGERS 1,000 ML IV SCH ×2 (03:12→09:08)
[2018-12-09 04:00] VITALS: BP 129/77
[2018-12-09] MEDS: MULTIVIT W/MINERALS TAB (THERAGRAN M) PO SCH (05:28)
[2018-12-09] MEDS: THIAMINE 100 MG (VITAMIN B-1) TAB PO SCH (05:28)
[2018-12-09] MEDS: methylPREDNISolone 40 MG/ML (Solu-MEDROL) VIAL IV SCH ×4 (05:28→23:54)
[2018-12-09 06:22] LABS: BASOPHILS % (AUTO) 0 % (0-10); EOSINOPHILS # (AUTO) 0.1 10^3/uL (0.0-0.3); EOSINOPHILS % (AUTO) 0 % (0-10); HEMATOCRIT 40 % (40-54); HEMOGLOBIN 13.3 G/DL (13.3-17.7); LYMPHOCYTES # (AUTO) 1.3 X 10^3 (1.0-4.0); LYMPHOCYTES % (AUTO) 6 % (12-44); MEAN CORPUSCULAR HEMOGLOBIN 32 PG (25-34); MEAN CORPUSCULAR HGB CONC 34 G/DL (32-36); MEAN CORPUSCULAR VOLUME 95 FL (80-99); MEAN PLATELET VOLUME 9.7 FL (7.4-10.4); MONOCYTES # (AUTO) 0.2 X 10^3 (0.0-1.0); MONOCYTES % (AUTO) 1 % (0-12); NEUTROPHILS # (AUTO) 18.1 X 10^3 (1.8-7.8); NEUTROPHILS % (AUTO) 92 % (42-75); PLATELET COUNT 388 10^3/uL (130-400); RED CELL DISTRIBUTION WIDTH 13.5 % (10.0-14.5); WHITE BLOOD COUNT 19.6 10^3/uL (4.3-11.0)
[2018-12-09 06:43] LABS: ALANINE AMINOTRANSFERASE 27 U/L (0-55); ALBUMIN 3.6 GM/DL (3.2-4.5); ALKALINE PHOSPHATASE 62 U/L (40-136); BILIRUBIN,TOTAL 0.4 MG/DL (0.1-1.0); BUN/CREATININE RATIO 18; CALCIUM 9.3 MG/DL (8.5-10.1); CARBON DIOXIDE 21 MMOL/L (21-32); CHLORIDE 108 MMOL/L (98-107); CREATININE SERUM 0.67 MG/DL (0.60-1.30); GFR ESTIMATED > 60; GLUCOSE 138 MG/DL (70-105); MAGNESIUM 2.1 MG/DL (1.8-2.4); POTASSIUM 4.4 MMOL/L (3.6-5.0); SODIUM 140 MMOL/L (135-145); TOTAL PROTEIN 6.3 GM/DL (6.4-8.2)
[2018-12-09 08:00] VITALS: BP 135/84
[2018-12-09] MEDS: AZITHROMYCIN 250 MG TAB (ZITHROMAX) PO SCH (08:56)
[2018-12-09] MEDS: FOLIC ACID 1 MG TAB PO SCH (08:56)
[2018-12-09] MEDS: MAGNESIUM OXIDE (MAG-OX)400 MG TAB PO SCH ×2 (08:56→21:20)
[2018-12-09] MEDS: HYDROcodone/APAP 5 MG/325 MG (LORTAB) TAB PO PRN ×3 (08:56→22:22)
[2018-12-09] MEDS: NICOTINE PATCH REMOVAL TP SCH (08:57)
[2018-12-09] MEDS: NICOTINE 21 MG (NICODERM) PATCH TD SCH ×2 (08:57→20:08)
--- NOTE | 2018-12-09 09:10 | NUR ---
PT. REFUSES ATIVAN AT THIS TIME. STATES " IT MAKES ME SLEEPY. I DON'T WANT TO GO TO SLEEP." SL. TREMORS IN HANDS. NO HALLUCINATIONS. FREQ. PRODUCTIVE COUGH WITH HEADACHE.
--- NOTE | 2018-12-09 10:14 | Progress Note-Hospitalist ---
Subjective HPI/CC On Admission Date Seen by Provider: December 09, 2018 Time Seen by Provider: 09:30 CC: Bilateral pneumonia with leukocytosis and thrombocytosis HPI: This is a 38-year-old white male who is usually very healthy but does smoke 1 pack per day of cigarettes and also uses marijuana along with regular alcohol use 4 drinks a day who works at [employer] in the [email or web address] department for the past 10 years who presented to the ER from urgent care due to shortness of breath and cough and was found to have bilateral extensive pneumonia with leukocytosis and sepsis. Patient was placed on protocol given IV fluids IV antibiotics and pancultured. Apparently he had seen the on site clinic and was referred to hematology for leukocytosis and thrombocytosis and I am unclear when exactly that happened so I will try to get records and review that. He was not given any type of treatment for any other acute illness prior to seeking care at urgent care and thus subsequent via [facility]. Smoking cessation counseled. Mother is at the bedside. Patient did have a bronchoscopy completed and those results are pending. I did update the patient on the plan. He does report a headache and overall muscle pain so he was given pain medication. He did have an appointment with Dr. Mathews next week as referred by on-site [facility] care at [employer] so I did speak with Dr. Mathews who will see him in consultation while he was hospitalized and he has ordered a peripheral smear for review. Subjective/Events-last exam Patient doing much better We'll Hep-Lock IV fluid Eating and drinking well Reviewed home meds Restarted home meds White count much improved Appreciate hematology consultation Reviewed meds and labs Review of Systems General: Fatigue Pulmonary: Dyspnea, Cough Focused Exam Lactate Level 12/07/18 09:40: Lactic Acid Level 0.88 12/07/18 16:39: Lactic Acid Level 1.38 Objective Exam Vital Signs Vital Signs Date Time Temp Pulse Resp B/P (MAP) Pulse Ox O2 Delivery O2 Flow Rate FiO2 12/09/18 08:00 98.8 88 18 135/84 (101) 97 Room Air 12/08/18 08:30 10 12/07/18 14:07 2 Capillary Refill : Less Than 3 Seconds General Appearance: No Apparent Distress, WD/WN, Anxious HEENT: PERRL/EOMI, Normal ENT Inspection, Pharynx Normal, Moist Mucous Membranes Neck: Full Range of Motion, Normal Inspection, Non Tender Respiratory: Chest Non Tender, Lungs Clear, Normal Breath Sounds, No Accessory Muscle Use, No Respiratory Distress Cardiovascular: Regular Rate, Rhythm, No Edema, No Gallop, No JVD, No Murmur, Normal Peripheral Pulses Gastrointestinal: Normal Bowel Sounds, No Organomegaly, No Pulsatile Mass, Non Tender, Soft Back: Normal Inspection, No CVA Tenderness, No Vertebral Tenderness Extremity: Normal Capillary Refill, Normal Inspection, Normal Range of Motion, Non Tender, No Calf Tenderness, No Pedal Edema Neurologic/Psychiatric: Alert, Oriented x3, No Motor/Sensory Deficits, Normal Mood/Affect Skin: Normal Color, Warm/Dry Lymphatic: No Adenopathy Results/Procedures Lab Laboratory Tests 12/09/18 05:23 Patient resulted labs reviewed. Assessment/Plan Assessment and Plan Assess & Plan/Chief Complaint Assessment: Bilateral pneumonia s/p bronchoscopy washings NGTD Severe leukocytosis with thrombocytosis likely due to acute illness ADD Plan: Abx Nebs Ambulate HLIVF Diagnosis/Problems Diagnosis/Problems (1) Sepsis Status: Resolved Qualifiers: Sepsis type: sepsis due to unspecified organism Qualified Codes: A41.9 - Sepsis, unspecified organism Resolution Date/Time: 12/09/18 @ 10:28 (2) Bilateral pneumonia Status: Acute Qualifiers: Pneumonia type: due to unspecified organism Lung location: lower lobe of lung Qualified Codes: J18.1 - Lobar pneumonia, unspecified organism (3) Marijuana abuse Status: Chronic (4) ADD (attention deficit disorder) Status: Chronic Qualifiers: Hyperactivity presence: present Attention deficit-hyperactivity disorder type: unspecified Qualified Codes: F90.9 - Attention-deficit hyperactivity disorder, unspecified type (5) Leukocytosis Status: Acute Qualifiers: Leukocytosis type: leukemoid reaction Qualified Codes: D72.823 - Leukemoid reaction (6) Thrombocytosis Status: Resolved Resolution Date/Time: 12/09/18 @ 10:28 (7) Anxiety Status: Chronic (8) Hypoxemia Status: Resolved Resolution Date/Time: 12/09/18 @ 10:28 (9) Alcohol abuse Status: Chronic (10) Illicit drug use Status: Chronic (11) Hypertension Status: Chronic Qualifiers: Hypertension type: essential hypertension Qualified Codes: I10 - Essential (primary) hypertension Clinical Quality Measures DVT/VTE Risk/Contraindication: Risk Factor Score Per Nursin RFS Level Per Nursing on Admit: 4+=Very High KERLINE UGALDE DO December 09, 2018 10:14
--- NOTE | 2018-12-09 10:53 | Pulmonary Progress Note ---
Subjective Time Seen by a Provider: 10:53 Subjective/Events-last exam PT is walking halls and feeling better. Sepsis Event Evaluation Height, Weight, BMI Height: 5'7.00" Weight: 168lbs. 0.0oz. 76.014900mw; 26.3 BMI Method:Stated Focused Exam Lactate Level 12/07/18 09:40: Lactic Acid Level 0.88 12/07/18 16:39: Lactic Acid Level 1.38 Exam Exam Vital Signs Date Time Temp Pulse Resp B/P (MAP) Pulse Ox O2 Delivery O2 Flow Rate FiO2 12/09/18 10:36 Room Air 12/09/18 08:00 98.8 88 18 135/84 (101) 97 Room Air 12/09/18 08:00 Room Air 12/09/18 06:55 76 12/09/18 06:09 96 Room Air 12/09/18 04:00 98.3 77 20 129/77 (94) 97 Room Air 12/09/18 02:39 92 Room Air 12/09/18 00:56 82 12/08/18 23:31 98.2 87 20 134/78 (96) 97 Room Air 12/08/18 22:47 93 Room Air 12/08/18 20:00 Room Air 12/08/18 19:26 98.3 98 22 129/77 (94) 96 Room Air 12/08/18 19:02 99 12/08/18 18:43 92 Room Air 12/08/18 15:19 98.4 107 22 136/89 (105) 94 Room Air 12/08/18 13:12 102 12/08/18 12:00 98.4 97 26 132/70 (90) 95 Room Air I & O 12/09/18 07:00 Intake Total 4730 ml Output Total 600 ml Balance 4130 ml Height & Weight Height: 5'7.00" Weight: 168lbs. 0.0oz. 76.914554kn; 26.3 BMI Method:Stated General Appearance: No Apparent Distress, WD/WN, Anxious HEENT: PERRL/EOMI, Normal ENT Inspection, Pharynx Normal, Moist Mucous Membranes Neck: Full Range of Motion, Normal Inspection, Non Tender Respiratory: Chest Non Tender, Lungs Clear, Normal Breath Sounds, No Accessory Muscle Use, No Respiratory Distress Cardiovascular: Regular Rate, Rhythm, No Edema, No Gallop, No JVD, No Murmur, Normal Peripheral Pulses Capillary Refill: Less Than 3 Seconds Gastrointestinal: non tender, soft Extremity: Normal Capillary Refill, Normal Inspection, Normal Range of Motion, Non Tender, No Calf Tenderness, No Pedal Edema Neurologic/Psychiatric: Alert, Oriented x3, No Motor/Sensory Deficits, Normal Mood/Affect Skin: Normal Color, Warm/Dry Lymphatic: No Adenopathy Results Lab Laboratory Tests 12/07/18 16:39 12/08/18 06:20 12/09/18 05:23 Assessment/Plan Assessment/Plan Extensive bilateral pneumonia with sepsis (not severe sepsis LA was normal) - Zosyn -Check CT of chest reviewed - shows extensive bilateral infiltrates -s/p bronchoscopy -viral respiratory panel - pending -strep/legionella ag pending -Mycoplasma Ab pending -MRSA nasal swab -Solumedrol 40 IV Q 6 - Alocohol dependance - monitor for withdrawal -LINDA protocol Marijuanna, and tobacco use JAIME LLOYD DO December 09, 2018 10:53
[2018-12-09] MEDS: cefTRIAXone 1,000 MG/SWFI 10 ML IV PUSH IV SCH ×2 (11:11)
[2018-12-09] MEDS: lisINopril 20 MG (PRINIVIL) TABLET PO SCH ×2 (11:11→12:06)
[2018-12-09] MEDS: ALPRAZolam 0.5 MG (XANAX) TAB PO SCH ×2 (11:11→21:20)
[2018-12-09 11:47] VITALS: BP 146/92
--- NOTE | 2018-12-09 12:04 | NUR ---
PT. TOOK OWN LISINOPRIL 20 MG ( PT. STATED) FROM HOME MED. ASKED PT. FOR BOTTLE AND PT. SHOWED ME A MEDICATION DISPENSER. INSTRUCTED PT. TO BRING BOTTLE OF MEDS IF HE WANTS TO TAKE HIS OWN MEDS.
[2018-12-09 15:31] VITALS: BP 143/84
[2018-12-09] MEDS: fentaNYL INJECTION 100 MCG/2 ML AMP IVP PRN (18:28)
[2018-12-09 19:52] VITALS: BP 138/76
[2018-12-09] MEDS ORDERED: NON-FORMULARY MEDICATION 1 EA EA (Dextroamphetamine/Amphetamine (Amphetamine Salts 20 mg T PO SCH (21:00)
[2018-12-09] MEDS ORDERED: ALPRAZolam 0.5 MG (XANAX) TAB PO SCH (21:00)
[2018-12-09] MEDS: LORazepam 1 MG (ATIVAN) TAB PO PRN ×2 (21:19→22:22)
[2018-12-10] VITALS: BP 156/88
[2018-12-10] MEDS: fentaNYL INJECTION 100 MCG/2 ML AMP IVP PRN (02:21)
[2018-12-10 04:00] VITALS: BP 136/88
[2018-12-10 06:31] LABS: BASOPHILS % (AUTO) 0 % (0-10); EOSINOPHILS % (AUTO) 0 % (0-10); HEMATOCRIT 41 % (40-54); HEMOGLOBIN 13.9 G/DL (13.3-17.7); LYMPHOCYTES # (AUTO) 1.4 X 10^3 (1.0-4.0); LYMPHOCYTES % (AUTO) 7 % (12-44); MEAN CORPUSCULAR HEMOGLOBIN 32 PG (25-34); MEAN CORPUSCULAR HGB CONC 34 G/DL (32-36); MEAN CORPUSCULAR VOLUME 95 FL (80-99); MEAN PLATELET VOLUME 9.4 FL (7.4-10.4); MONOCYTES # (AUTO) 0.5 X 10^3 (0.0-1.0); MONOCYTES % (AUTO) 2 % (0-12); NEUTROPHILS # (AUTO) 19.6 X 10^3 (1.8-7.8); NEUTROPHILS % (AUTO) 91 % (42-75); PLATELET COUNT 425 10^3/uL (130-400); RED CELL DISTRIBUTION WIDTH 13.3 % (10.0-14.5); WHITE BLOOD COUNT 21.5 10^3/uL (4.3-11.0)
[2018-12-10] MEDS: THIAMINE 100 MG (VITAMIN B-1) TAB PO SCH (06:36)
[2018-12-10] MEDS: MULTIVIT W/MINERALS TAB (THERAGRAN M) PO SCH (06:36)
[2018-12-10] MEDS: methylPREDNISolone 40 MG/ML (Solu-MEDROL) VIAL IV SCH ×2 (06:36→12:54)
[2018-12-10 06:46] LABS: BUN/CREATININE RATIO 18; CALCIUM 9.1 MG/DL (8.5-10.1); CARBON DIOXIDE 20 MMOL/L (21-32); CHLORIDE 106 MMOL/L (98-107); CREATININE SERUM 0.77 MG/DL (0.60-1.30); GFR ESTIMATED > 60; GLUCOSE 208 MG/DL (70-105); MAGNESIUM 2.2 MG/DL (1.8-2.4); POTASSIUM 4.3 MMOL/L (3.6-5.0); SODIUM 137 MMOL/L (135-145)
[2018-12-10 08:00] VITALS: BP 147/87
[2018-12-10] MEDS: ALPRAZolam 0.5 MG (XANAX) TAB PO SCH (08:48)
[2018-12-10] MEDS: lisINopril 20 MG (PRINIVIL) TABLET PO SCH (08:48)
[2018-12-10] MEDS: NICOTINE 21 MG (NICODERM) PATCH TD SCH (08:48)
[2018-12-10] MEDS: AZITHROMYCIN 250 MG TAB (ZITHROMAX) PO SCH (08:48)
[2018-12-10] MEDS: FOLIC ACID 1 MG TAB PO SCH (08:48)
[2018-12-10] MEDS: MAGNESIUM OXIDE (MAG-OX)400 MG TAB PO SCH (08:48)
[2018-12-10] MEDS ORDERED: VALACYCLOVIR 500 MG TAB (VALTREX) PO SCH (09:00)
[2018-12-10] MEDS ORDERED: NON-FORMULARY MEDICATION 1 EA EA (Valacyclovir HCl (Valacyclovir) 1,000 MG) PO SCH (09:00)
[2018-12-10] MEDS ORDERED: MULTIVITAMIN PO SCH (09:00)
[2018-12-10] MEDS: NICOTINE PATCH REMOVAL TP SCH (09:32)
[2018-12-10] MEDS ORDERED: NICO-588 TD (10:06)
[2018-12-10] MEDS ORDERED: CEFD300C3 PO (10:06)
[2018-12-10] MEDS ORDERED: PRED10TA22 PO (10:06)
--- NOTE | 2018-12-10 10:08 | Progress Note-Hospitalist ---
Subjective HPI/CC On Admission Date Seen by Provider: December 10, 2018 Time Seen by Provider: 09:30 CC: Bilateral pneumonia with leukocytosis and thrombocytosis HPI: This is a 38-year-old white male who is usually very healthy but does smoke 1 pack per day of cigarettes and also uses marijuana along with regular alcohol use 4 drinks a day who works at [employer] and [employer] in the [employer] department for the past 10 years who presented to the ER from urgent care due to shortness of breath and cough and was found to have bilateral extensive pneumonia with leukocytosis and sepsis. Patient was placed on protocol given IV fluids IV antibiotics and pancultured. Apparently he had seen the on site clinic and was referred to hematology for leukocytosis and thrombocytosis and I am unclear when exactly that happened so I will try to get records and review that. He was not given any type of treatment for any other acute illness prior to seeking care at urgent care and thus subsequent via [facility], [place]. Smoking cessation counseled. Mother is at the bedside. Patient did have a bronchoscopy completed and those results are pending. I did update the patient on the plan. He does report a headache and overall muscle pain so he was given pain medication. He did have an appointment with Dr. Mathews next week as referred by on-site [facility] care at [place] so I did speak with Dr. Mathews who will see him in consultation while he was hospitalized and he has ordered a peripheral smear for review. Focused Exam Lactate Level 12/07/18 16:39: Lactic Acid Level 1.38 Objective Exam Vital Signs Vital Signs Date Time Temp Pulse Resp B/P (MAP) Pulse Ox O2 Delivery O2 Flow Rate FiO2 12/10/18 08:40 Room Air 12/10/18 08:00 98.8 97 18 147/87 (107) 95 12/08/18 08:30 10 12/07/18 14:07 2 Capillary Refill : Less Than 3 Seconds General Appearance: No Apparent Distress, WD/WN, Anxious HEENT: PERRL/EOMI, Normal ENT Inspection, Pharynx Normal, Moist Mucous Membranes Neck: Full Range of Motion, Normal Inspection, Non Tender Respiratory: Chest Non Tender, Lungs Clear, Normal Breath Sounds, No Accessory Muscle Use, No Respiratory Distress Cardiovascular: Regular Rate, Rhythm, No Edema, No Gallop, No JVD, No Murmur, Normal Peripheral Pulses Gastrointestinal: Normal Bowel Sounds, No Organomegaly, No Pulsatile Mass, Non Tender, Soft Back: Normal Inspection, No CVA Tenderness, No Vertebral Tenderness Extremity: Normal Capillary Refill, Normal Inspection, Normal Range of Motion, Non Tender, No Calf Tenderness, No Pedal Edema Neurologic/Psychiatric: Alert, Oriented x3, No Motor/Sensory Deficits, Normal Mood/Affect Skin: Normal Color, Warm/Dry Lymphatic: No Adenopathy Results/Procedures Lab Laboratory Tests 12/10/18 06:05 Patient resulted labs reviewed. Assessment/Plan Assessment and Plan Assess & Plan/Chief Complaint Assessment: Bilateral pneumonia s/p bronchoscopy washings NGTD Severe leukocytosis with thrombocytosis likely due to acute illness ADD Plan: Abx Nebs Ambulate HLIVF Diagnosis/Problems Diagnosis/Problems (1) Sepsis Status: Resolved Qualifiers: Sepsis type: sepsis due to unspecified organism Qualified Codes: A41.9 - Sepsis, unspecified organism Resolution Date/Time: 12/09/18 @ 10:28 (2) Bilateral pneumonia Status: Acute Qualifiers: Pneumonia type: due to unspecified organism Lung location: lower lobe of lung Qualified Codes: J18.1 - Lobar pneumonia, unspecified organism (3) Marijuana abuse Status: Chronic (4) ADD (attention deficit disorder) Status: Chronic Qualifiers: Hyperactivity presence: present Attention deficit-hyperactivity disorder type: unspecified Qualified Codes: F90.9 - Attention-deficit hyperactivity disorder, unspecified type (5) Leukocytosis Status: Acute Qualifiers: Leukocytosis type: leukemoid reaction Qualified Codes: D72.823 - Leukemoid reaction (6) Thrombocytosis Status: Resolved Resolution Date/Time: 12/09/18 @ 10:28 (7) Anxiety Status: Chronic (8) Hypoxemia Status: Resolved Resolution Date/Time: 12/09/18 @ 10:28 (9) Alcohol abuse Status: Chronic (10) Illicit drug use Status: Chronic (11) Hypertension Status: Chronic Qualifiers: Hypertension type: essential hypertension Qualified Codes: I10 - Essential (primary) hypertension Clinical Quality Measures DVT/VTE Risk/Contraindication: Risk Factor Score Per Nursin RFS Level Per Nursing on Admit: 4+=Very High KERLINE UGALDE DO December 10, 2018 10:08
--- NOTE | 2018-12-10 10:09 | Discharge Summary-Hospitalist ---
Diagnosis/Chief Complaint Date of Admission Dec 07, 2018 at 11:07 Date of Discharge Discharge Date: December 10, 2018 Admission Diagnosis Assessment: Bilateral extensive pneumonia Sepsis Hypoxemia on ABG Smoker Excessive alcohol use Marijuana use ADHD Anxiety Leukocytosis Thrombocytosis Mild metabolic acidosis Plan: IV antibiotics IV fluids Dr. Mathews consultation Dr. Rose consultation is appreciated Await bronchoscopy results Discharge Diagnosis (1) Sepsis Status: Resolved (2) Bilateral pneumonia Status: Acute (3) Marijuana abuse Status: Chronic (4) ADD (attention deficit disorder) Status: Chronic (5) Leukocytosis Status: Acute (6) Thrombocytosis Status: Resolved (7) Anxiety Status: Chronic (8) Hypoxemia Status: Resolved (9) Alcohol abuse Status: Chronic (10) Illicit drug use Status: Chronic (11) Hypertension Status: Chronic Discharge Summary Discharge Physical Exam Allergies: Coded Allergies: No Known Drug Allergies (Unverified , 09/11/15) Vitals & I&Os Vital Signs Date Time Temp Pulse Resp B/P (MAP) Pulse Ox O2 Delivery O2 Flow Rate FiO2 12/10/18 08:40 Room Air 12/10/18 08:00 98.8 97 18 147/87 (107) 95 12/08/18 08:30 10 12/07/18 14:07 2 General Appearance: No Apparent Distress, WD/WN, Chronically ill Respiratory: Chest Non Tender, Lungs Clear, Normal Breath Sounds, No Accessory Muscle Use, No Respiratory Distress Cardiovascular: Regular Rate, Rhythm, No Edema, No Gallop, No JVD, No Murmur, Normal Peripheral Pulses Neurologic/Psychiatric: Alert, Oriented x3, No Motor/Sensory Deficits, Normal Mood/Affect Hospital Course Was the Problem List Reviewed?: Yes Hospital course: patient had an uneventful hospital course. Patient underwent bronchoscopy by Dr. Rose due to severe bilateral pneumonia. CT scan reviewed. Alcohol withdrawal protocol followed. Nicotine patch maintained. Restarted all home meds without difficulty. Patient had visit with hematology and he has an appointment next week already with Dr Mathews. he will need 5 more days of Omnicef antibiotic coverage along with smoking cessation and alcohol cessation. Labs (last 24 hrs) Laboratory Tests 12/10/18 06:05: White Blood Count 21.5H, Red Blood Count 4.32L, Hemoglobin 13.9, Hematocrit 41, Mean Corpuscular Volume 95, Mean Corpuscular Hemoglobin 32, Mean Corpuscular Hemoglobin Concent 34, Red Cell Distribution Width 13.3, Platelet Count 425H, Mean Platelet Volume 9.4, Neutrophils (%) (Auto) 91H, Lymphocytes (%) (Auto) 7L , Monocytes (%) (Auto) 2, Eosinophils (%) (Auto) 0, Basophils (%) (Auto) 0, Neutrophils # (Auto) 19.6H, Lymphocytes # (Auto) 1.4, Monocytes # (Auto) 0.5, Eosinophils # (Auto) 0.0, Basophils # (Auto) 0.0, Sodium Level 137, Potassium Level 4.3, Chloride Level 106, Carbon Dioxide Level 20L, Anion Gap 11, Blood Urea Nitrogen 14, Creatinine 0.77, Estimat Glomerular Filtration Rate > 60, BUN/ Creatinine Ratio 18, Glucose Level 208H, Calcium Level 9.1, Magnesium Level 2.2 Microbiology 12/07/18 Blood Culture - Preliminary, Resulted No growth 12/08/18 Mycobacterial Culture - Preliminary, Resulted 12/07/18 Urine Culture - Final, Complete NO GROWTH Patient resulted labs reviewed. Pending Labs Laboratory Tests 12/10/18 06:05: White Blood Count 21.5, Red Blood Count 4.32, Hemoglobin 13.9, Hematocrit 41, Mean Corpuscular Volume 95, Mean Corpuscular Hemoglobin 32, Mean Corpuscular Hemoglobin Concent 34, Red Cell Distribution Width 13.3, Platelet Count 425, Mean Platelet Volume 9.4, Neutrophils (%) (Auto) 91, Lymphocytes (%) (Auto) 7, Monocytes (%) (Auto) 2, Eosinophils (%) (Auto) 0, Basophils (%) (Auto) 0, Neutrophils # (Auto) 19.6, Lymphocytes # (Auto) 1.4, Monocytes # (Auto) 0.5, Eosinophils # (Auto) 0.0, Basophils # (Auto) 0.0, Sodium Level 137, Potassium Level 4.3, Chloride Level 106, Carbon Dioxide Level 20, Anion Gap 11, Blood Urea Nitrogen 14, Creatinine 0.77, Estimat Glomerular Filtration Rate > 60, BUN/ Creatinine Ratio 18, Glucose Level 208, Calcium Level 9.1, Magnesium Level 2.2 Discussion & Recommendations Discharge Planning: <30 minutes discharge planning Discharge Home Medications: Active Scripts Active Cefdinir 300 Mg Capsule 300 Mg PO BID Prednisone 10 Mg Tab.ds.pk 10 Mg PO DAILY Take 6 tabs(60mg)daily,decrease by 1 tab(10MG)daily. Nicotine Patch (Nicotine) 1 Each Patch.td24 21 Mg TD DAILY@0900 Reported Valacyclovir (Valacyclovir HCl) 1,000 Mg Tablet 1,000 Mg PO DAILY Lisinopril 20 Mg Tablet 20 Mg PO DAILY Daily Value (Multivitamin) 1 Each Tablet 1 Tab PO DAILY Amphetamine Salts 20 mg Tablet (Dextroamphetamine/Amphetamine) 20 Mg Tablet 20 Mg PO BID Alprazolam 0.5 Mg Tablet 0.5 Mg PO BID Instructions to patient/family Please see electronic discharge instructions given to patient. Clinical Quality Measures DVT/VTE Risk/Contraindication: Risk Factor Score Per Nursin RFS Level Per Nursing on Admit: 4+=Very High Problem Qualifiers (1) Sepsis: Sepsis type: sepsis due to unspecified organism Qualified Codes: A41.9 - Sepsis, unspecified organism (2) Bilateral pneumonia: Pneumonia type: due to unspecified organism Lung location: lower lobe of lung Qualified Codes: J18.1 - Lobar pneumonia, unspecified organism (3) ADD (attention deficit disorder): Hyperactivity presence: present Attention deficit-hyperactivity disorder type : unspecified Qualified Codes: F90.9 - Attention-deficit hyperactivity disorder, unspecified type (4) Leukocytosis: Leukocytosis type: leukemoid reaction Qualified Codes: D72.823 - Leukemoid reaction (5) Hypertension: Hypertension type: essential hypertension Qualified Codes: I10 - Essential ( primary) hypertension KERLINE UGALDE DO December 10, 2018 10:09
[2018-12-10 11:27] VITALS: BP 144/96
[2018-12-10] MEDS: cefTRIAXone 1,000 MG/SWFI 10 ML IV PUSH IV SCH ×2 (12:54)
[2018-12-10 13:47] LABS: PARAINFLU 2 PCR Not Detected (Not Detected)
[2018-12-10 14:00] VITALS: BP 144/96
--- NOTE | 2018-12-10 14:00 | NUR ---
DISCHARGE INSTRUCTIONS GIVEN TO PATIENT. PATIENT VERBALIZED UNDERSTANDING. IV REMOVED. STAFF WALKED PATIENT CAR.
[2018-12-13 08:10] LABS: PARAINFLU 1 PCR Not Detected (Not Detected); RSV PCR Not Detected (Not Detected)
== END 2018-12-10 14:00 | disposition home or self-care (01) | DRG 871 ==
LOC: EDUNIT# 09:12 → ER 09:13 → 4TH 11:07
PROVIDERS: ADMIT Internal Medicine; ATTEND Internal Medicine
PROC: 0B938ZZ Drainage of Right Main Bronchus, Via Natural or Artificial Opening Endoscopic (ICD-10-PCS; 2018-12-08)
PROC: 0B978ZZ Drainage of Left Main Bronchus, Via Natural or Artificial Opening Endoscopic (ICD-10-PCS; principal; 2018-12-08 08:02)
DX: A41.9 Sepsis, unspecified organism (principal); J18.1 Lobar pneumonia, unspecified organism; E87.2 Acidosis; J90 Pleural effusion, not elsewhere classified; F10.20 Alcohol dependence, uncomplicated; I10 Essential (primary) hypertension; F17.210 Nicotine dependence, cigarettes, uncomplicated; F41.9 Anxiety disorder, unspecified; F90.9 Attention-deficit hyperactivity disorder, unspecified type; F12.90 Cannabis use, unspecified, uncomplicated; R09.02 Hypoxemia; D72.823 Leukemoid reaction; D69.6 Thrombocytopenia, unspecified
CPT/HCPCS: 36415; 71045; 71046; 71260; 80048; 80053; 80306; 80320; 81000; 82805; 83605; 83735; 83880; 84100; 84484; 85007; 85025; 85027; 85610; 85730; 86738; 87015; 87040; 87070; 87081; 87088; 87101; 87116; 87205; 87206; 87449; 87631; 87899; 93005; 93041; 94760; 96361; 96374; 96375